=== PATIENT | female | born 1945 | race Caucasian/White ===

== ENCOUNTER 2016-03-25 21:24 | Emergency (ER) | payer MEDICARE ==
[2016-03-25 22:49] LABS: ALB/GLOB RATIO 1.3 (>1.0); ALBUMIN 3.6 gm/dL (3.5-5.7); CALCIUM 9.3 mg/dL (8.6-10.3); MAGNESIUM 1.9 mg/dL (1.9-2.7)
[2016-03-25 22:52] LABS: ABSOLUTE NEUTROPHIL COUNT 3.3 K/mm3 (1.8-7.7); BASO # 0.1 K/mm3 (0.0-0.2); BASO % 0.9 % (0.2-1.0); EOS # 0.3 (0.0-0.5); EOS % 5.5 % (0.9-2.9); HEMATOCRIT 40.5 % (37.0-47.0); HEMOGLOBIN 13.2 gm/l (12.0-16.0); IMM NEUT% 0.2 % (0-1); LYMPH # 1.4 (1.0-4.8); LYMPH % 25.5 % (15-45); MEAN CELL VOLUME 96.4 fl (81.0-99.0); MEAN CORPUSCULAR HEMOGLOBIN 31.4 pg (27.0-31.0); MEAN CORPUSCULAR HGB CONC 32.6 g/dl (33.0-37.0); MEAN PLATELET VOLUME 8.6 fl (7.4-10.4); MONO # 0.5 (0.0-0.8); MONO % 8.9 % (4-12); PLATELET COUNT 242 K/mm3 (130-400); RED CELL DISTRIBUTION WIDTH 13.5 % (11.5-14.5)
[2016-03-25] MEDS ORDERED: ACETAMINOPHEN 500 MG TABLET ONE (23:04)
== END 2016-03-25 23:26 | disposition home or self-care (01) ==
LOC: ED 21:24
DX: R20.9 Unspecified disturbances of skin sensation (principal)